=== PATIENT | female | born 1975 | race Caucasian/White ===

== ENCOUNTER 2018-10-05 09:01 | Day surgery (SDC) | payer OTHER ==
[~2018-10-05] VITALS: Ht 167.6 cm; Wt 96.2 kg
[2018-10-05 09:31] VITALS: BP 139/95
[2018-10-05 15:22] VITALS: BP 120/86
== END 2018-10-05 15:10 | disposition home or self-care (01) ==
LOC: DS 09:01 → OR 12:00 → DS 15:10
DX: K43.9 Ventral hernia without obstruction or gangrene (principal); F41.9 Anxiety disorder, unspecified; Z72.0 Tobacco use; Z98.890 Other specified postprocedural states; Z79.899 Other long term (current) drug therapy; E66.9 Obesity, unspecified
CPT/HCPCS: C1781; J0330; J0690; J1170; J2250; J2405; J2704; J2710; J3010; J3490; J7120

== ENCOUNTER 2019-02-15 09:49 | Day surgery (SDC) | payer OTHER ==
[~2019-02-15] VITALS: Ht 167.6 cm; Wt 95.2 kg
[2019-02-15 10:10] VITALS: BP 133/95
[2019-02-15 15:13] VITALS: BP 112/78
== END 2019-02-15 15:10 | disposition home or self-care (01) ==
LOC: DS 09:49 → OR 11:00 → DS 11:00
PROVIDERS: Surgery
PROC: 0WUF4JZ Supplement Abdominal Wall with Synthetic Substitute, Percutaneous Endoscopic Approach (ICD-10-PCS; principal; 2019-02-15 11:00)
DX: K43.9 Ventral hernia without obstruction or gangrene (principal); E66.9 Obesity, unspecified; Z68.33 Body mass index [BMI] 33.0-33.9, adult
CPT/HCPCS: C1758; C1781; J0330; J0690; J0694; J1170; J2175; J2250; J2405; J2704; J2710; J3010; J3490; J7120